=== PATIENT | female | born 1975 | race Caucasian/White ===

== ENCOUNTER 2019-12-24 14:49 | Emergency (ER) | payer MEDICAID, OTHER ==
[~2019-12-24] VITALS: Ht 149.9 cm; Wt 72.6 kg
[2019-12-24 17:50] VITALS: BP 180/83
== END 2019-12-24 18:11 | disposition home or self-care (01) ==
LOC: ER 14:49
DX: N61.1 Abscess of the breast and nipple (principal)

== ENCOUNTER 2020-04-13 21:29 | Emergency (ER) | payer MEDICAID ==
[~2020-04-13] VITALS: Ht 152.4 cm; Wt 77.1 kg
[2020-04-14 00:56] VITALS: BP 130/68
[2020-04-14] MEDS ORDERED: LIDOCAINE 1% HCL (LOCAL ANESTH.) INJ 20ML MDV IJ ONE (01:00)
== END 2020-04-14 01:45 | disposition home or self-care (01) ==
LOC: ER 21:31
DX: N61.1 Abscess of the breast and nipple (principal); N61.0 Mastitis without abscess
CPT/HCPCS: 19020; 99284; J2001; 10060

== ENCOUNTER 2020-04-15 16:11 | Emergency (ER) | payer MEDICAID ==
[~2020-04-15] VITALS: Ht 149.9 cm; Wt 77.1 kg
[2020-04-15 17:58] VITALS: BP 166/90
== END 2020-04-15 18:25 | disposition home or self-care (01) ==
LOC: ER 16:11
DX: N61.1 Abscess of the breast and nipple (principal); N61.0 Mastitis without abscess; F17.210 Nicotine dependence, cigarettes, uncomplicated; I10 Essential (primary) hypertension

== ENCOUNTER 2020-04-18 17:22 | Emergency (ER) | payer MEDICAID ==
[~2020-04-18] VITALS: Ht 152.4 cm; Wt 77.1 kg
[2020-04-18 17:25] VITALS: BP 179/99
== END 2020-04-18 20:42 | disposition home or self-care (01) ==
LOC: ER 17:22
DX: N61.0 Mastitis without abscess (principal); I10 Essential (primary) hypertension; F17.210 Nicotine dependence, cigarettes, uncomplicated; Z87.442 Personal history of urinary calculi; Z48.01 Encounter for change or removal of surgical wound dressing

== ENCOUNTER 2020-05-24 18:17 | Emergency (ER) | payer MEDICAID ==
[~2020-05-24] VITALS: Ht 149.9 cm; Wt 77.1 kg
[2020-05-24 18:18] VITALS: BP 183/90
== END 2020-05-24 23:13 | disposition left against medical advice (07) ==
LOC: ER 18:19
DX: R22.0 Localized swelling, mass and lump, head (principal); Z53.21 Procedure and treatment not carried out due to patient leaving prior to being seen by health care provider

== ENCOUNTER 2021-05-05 05:07 | Inpatient (IN) | payer MEDICAID ==
[~2021-05-05] VITALS: Ht 149.9 cm; Wt 84.0 kg
[2021-05-05] MEDS ORDERED: KETOROLAC TROMETH 60MG/2ML VIAL IM ONE (05:30)
[2021-05-05 06:14] LABS: Urine Amorphous Crystal FEW /hpf (None Seen); Urine Bacteria FEW /hpf (None Seen); Urine Blood TRACE /uL (Negative); Urine Hyaline Cast FEW /lpf (0 - 2); Urine Mucus FEW (None Seen); Urine Specific Gravity 1.014 (1.001-1.035); Urine WBC 5 /hpf (0 - 5)
[2021-05-05] MEDS ORDERED: ONDANSETRON HCL 4 MG/2 ML VIAL IV ONE (06:30)
[2021-05-05] MEDS ORDERED: MORPHINE SULFATE 4 MG/ML SYR/VIAL IV ONE (06:30)
[2021-05-05] MEDS ORDERED: cefTRIAXone 1GM/50ML D5W 50 ML IV ONE ×2 (06:30→16:15)
[2021-05-05] MEDS ORDERED: SODIUM CHLORIDE 0.9% 1,000 ML IV ONE ×2 (06:30)
[2021-05-05 07:22] LABS: Basophils # (auto) 0.1 10 ^3/uL (0-0.2); Basophils % (auto) 0.3 % (0.0-2.0); Eosinophils # (auto) 0.4 10 ^3/uL (0-0.8); Eosinophils % (auto) 2.4 % (0.0-7.0); Hematocrit 40.3 % (36.0-46.0); Hemoglobin 13.4 g/dL (12.2-16.2); Lymphocytes # (auto) 1.8 10 ^3/uL (0.4-5.4); Lymphocytes % (auto) 10.3 % (10.0-50.0); Mean Corpuscular Hemoglobin 27.9 pg (28.0-32.0); Mean Corpuscular Hgb Conc. 33.2 g/dL (32.0-36.0); Mean Corpuscular Volume 84.1 fL (80.0-100.0); Monocytes # (auto) 1.2 10 ^3/uL (0-1.3); Monocytes % (auto) 6.8 % (0.0-12.0); Neutrophils # (auto) 14.3 10 ^3/uL (1.6-8.6); Neutrophils % (auto) 80.2 % (37.0-80.0); Nucleated Red Blood Cells % 0.1 %; Red Blood Cells 4.79 10^6/uL (4.0-5.20); Red Cell Distribution Width 15.9 % (11.8-14.3); White Blood Cell 17.9 10^3/uL (4.4-10.8)
[2021-05-05 07:46] LABS: Albumin 3.2 g/dL (3.4-5.0); BUN/Creatinine Ratio 16.4; Calcium 8.3 mg/dL (8.5-10.1); Potassium 3.7 mmol/L (3.5-5.1)
[2021-05-05 07:48] LABS: Bilirubin, Total 0.2 mg/dL (0.2-1.0); Total Protein 6.8 g/dL (6.4-8.2)
[2021-05-05] MEDS ORDERED: LABETALOL HCL 5 MG/ML 4ML SYRINGE IV ONE (08:15)
[2021-05-05] MEDS ORDERED: PROMETHAZINE HCL 25 MG/ML 1ML IV ONE (09:15)
[2021-05-05] MEDS ORDERED: LABETALOL HCL 5 MG/ML 4ML SYRINGE IV PRN (10:45)
[2021-05-05] MEDS ORDERED: NITROGLYCERIN 0.4 MG SL TAB SL PRN (10:45)
[2021-05-05] MEDS ORDERED: MORPHINE SULFATE INJECTION 2 MG/ML SYRG IV PRN (10:45)
[2021-05-05 13:20] VITALS: BP 119/61
[2021-05-05] MEDS ORDERED: LACTULOSE 20Gm/30ML SOLN PO PRN (16:00)
[2021-05-05] MEDS ORDERED: FAMOTIDINE (10MG/ML) 2ML VL IV ONE (16:00)
[2021-05-05] MEDS ORDERED: PROMETHAZINE-DM 5 ML ORAL SYRUP PO PRN (16:00)
[2021-05-05] MEDS ORDERED: hydrALAZINE HCL 20 MG/ML VL IV PRN (16:00)
[2021-05-05] MEDS ORDERED: IPRATROPIUM BROM 0.5 MG/2.5ML INH SOL NEB ONE (16:00)
[2021-05-05] MEDS ORDERED: DOCUSATE SOD 100 MG CAP PO PRN (16:00)
[2021-05-05] MEDS ORDERED: LORazepam 0.5 MG TAB PO PRN (16:00)
[2021-05-05] MEDS: SODIUM CHLORIDE 0.9% 1,000 ML IV SCH (16:00)
[2021-05-05] MEDS ORDERED: MULTIPLE VITAMINS W/ MINERALS TAB PO ONE (16:00)
[2021-05-05] MEDS ORDERED: ONDANSETRON HCL 4 MG/2 ML VIAL IV PRN (16:00)
[2021-05-05] MEDS ORDERED: CLINDAMYCIN 600MG IV 50 ML IV ONE (16:15)
[2021-05-05] MEDS ORDERED: IPRATROPIUM BROM 0.5 MG/2.5ML INH SOL NEB SCH (18:00)
[2021-05-05 18:16] LABS: Partial Thromboplastin Time 28.7 sec (23.6-33.0)
[2021-05-05 18:17] LABS: Magnesium 2.1 mg/dL (1.6-2.6)
[2021-05-05 18:19] LABS: Phosphorus 4.3 mg/dL (2.5-4.90)
[2021-05-05 20:48] VITALS: BP 119/61
[2021-05-05] MEDS: CLINDAMYCIN 600MG IV 50 ML IV SCH (21:20)
[2021-05-05 22:00] VITALS: BP 141/73
[2021-05-05] MEDS ORDERED: ATORVASTATIN 20 MG TAB PO SCH (22:00)
[2021-05-05] MEDS ORDERED: IPRATROPIUM BROM 0.5 MG/2.5ML INH SOL NEB PRN (22:00)
[2021-05-06 05:00] VITALS: BP 144/77
[2021-05-06] MEDS: CLINDAMYCIN 600MG IV 50 ML IV SCH (06:59)
[2021-05-06 07:03] LABS: Basophils # (auto) 0 10 ^3/uL (0-0.2); Basophils % (auto) 0.4 % (0.0-2.0); Eosinophils # (auto) 0.5 10 ^3/uL (0-0.8); Eosinophils % (auto) 4.5 % (0.0-7.0); Hematocrit 39.3 % (36.0-46.0); Hemoglobin 13.1 g/dL (12.2-16.2); Lymphocytes # (auto) 1.5 10 ^3/uL (0.4-5.4); Lymphocytes % (auto) 12.6 % (10.0-50.0); Mean Corpuscular Hemoglobin 28.1 pg (28.0-32.0); Mean Corpuscular Hgb Conc. 33.4 g/dL (32.0-36.0); Mean Corpuscular Volume 84.1 fL (80.0-100.0); Monocytes # (auto) 0.6 10 ^3/uL (0-1.3); Monocytes % (auto) 4.9 % (0.0-12.0); Neutrophils # (auto) 9.3 10 ^3/uL (1.6-8.6); Neutrophils % (auto) 77.6 % (37.0-80.0); Red Blood Cells 4.67 10^6/uL (4.0-5.20); Red Cell Distribution Width 16.2 % (11.8-14.3)
[2021-05-06 07:16] LABS: INR 0.99 (0.9-1.15); Partial Thromboplastin Time 27.3 sec (23.6-33.0)
[2021-05-06 09:00] VITALS: BP 155/80
[2021-05-06] MEDS ORDERED: CHOLECALCIFEROL (VITD3) 2,000 UNIT CAP/TAB PO SCH (10:00)
[2021-05-06] MEDS ORDERED: MULTIPLE VITAMINS W/ MINERALS TAB PO SCH (10:00)
[2021-05-06] MEDS ORDERED: ASPirin 81 mg TAB PO SCH (10:00)
[2021-05-06] MEDS: FAMOTIDINE (10MG/ML) 2ML VL IV SCH (10:31)
[2021-05-06] MEDS: ENOXAPARIN SOD 40 MG/0.4 ML SYRINGE SC SCH (10:31)
[2021-05-06] MEDS: SODIUM CHLORIDE 0.9% 1,000 ML IV SCH (10:33)
[2021-05-06] MEDS: cefTRIAXone 1GM/50ML D5W 50 ML IV SCH (10:33)
[2021-05-06 12:55] LABS: Alcohol, Urine < 3.0 mg/dL (0-10); Amphetamine Screen, Urine POSITIVE (NEGATIVE); Barbiturate Scree,Urine NEGATIVE (NEGATIVE); Benzodiazephine Screen, Urine NEGATIVE (NEGATIVE); Cocaine Screen, Urine NEGATIVE (NEGATIVE); Opiate Scree,Urine NEGATIVE (NEGATIVE); Phencyclidine Screen, Urine NEGATIVE (NEGATIVE)
[2021-05-06 13:00] VITALS: BP 175/85
[2021-05-06 13:01] LABS: Cannabinoid Screen, Urine NEGATIVE (NEGATIVE)
[2021-05-06 17:00] VITALS: BP 149/81
[2021-05-06] MEDS ORDERED: MANNITOL FTV 25% 12.5 GM/50 ML 50 ML IV ONE ×2 (17:15→20:15)
[2021-05-06 22:00] VITALS: BP 144/65
[2021-05-07] MEDS: SODIUM CHLORIDE 0.9% 1,000 ML IV SCH (01:41)
[2021-05-07 05:00] VITALS: BP 139/90
[2021-05-07 08:30] VITALS: BP 158/84
[2021-05-07 09:00] VITALS: BP 135/89
[2021-05-07] MEDS: cefTRIAXone 1GM/50ML D5W 50 ML IV SCH (09:18)
[2021-05-07] MEDS: FAMOTIDINE (10MG/ML) 2ML VL IV SCH (09:18)
[2021-05-07] MEDS: ENOXAPARIN SOD 40 MG/0.4 ML SYRINGE SC SCH (09:19)
[2021-05-07] MEDS ORDERED: ONDA-144 PO (10:05)
[2021-05-07] MEDS ORDERED: CIPR-173 PO (10:05)
[2021-05-07] MEDS ORDERED: LISI-285 PO (10:28)
[2021-05-07] MEDS ORDERED: TAM04C PO (10:28)
[2021-05-07] MEDS ORDERED: TRAM50TA2 PO (10:28)
[2021-05-07 10:40] LABS: Albumin 3.1 g/dL (3.4-5.0); Calcium 8.2 mg/dL (8.5-10.1); Magnesium 2.6 mg/dL (1.6-2.6); Potassium 4.2 mmol/L (3.5-5.1)
[2021-05-07 10:46] LABS: BUN/Creatinine Ratio 18.5; Bilirubin, Total 0.3 mg/dL (0.2-1.0); CRP High Sensitivity 0.94 mg/dL (< 0.3); Phosphorus 3.4 mg/dL (2.5-4.90); Total Protein 6.7 g/dL (6.4-8.2)
[2021-05-07 12:28] VITALS: BP 144/70
[2021-05-07 12:51] VITALS: BP 158/84
== END 2021-05-07 13:21 | disposition home or self-care (01) | DRG 463 ==
LOC: ER 05:07 → TELE 10:45 → TELE-EAST 12:31 → TELE-CENTR 05-06 05:34
PROVIDERS: ADMIT Hospitalist; ATTEND Internal Medicine
DX: N13.6 Pyonephrosis (principal); N17.9 Acute kidney failure, unspecified; N20.2 Calculus of kidney with calculus of ureter; I16.0 Hypertensive urgency; I13.10 Hypertensive heart and chronic kidney disease without heart failure, with stage 1 through stage 4 chronic kidney disease, or unspecified chronic kidney disease; E66.01 Morbid (severe) obesity due to excess calories; N73.9 Female pelvic inflammatory disease, unspecified; N18.2 Chronic kidney disease, stage 2 (mild); K21.9 Gastro-esophageal reflux disease without esophagitis; Z20.822 Contact with and (suspected) exposure to COVID-19; E78.5 Hyperlipidemia, unspecified; F10.10 Alcohol abuse, uncomplicated; F17.210 Nicotine dependence, cigarettes, uncomplicated; F12.90 Cannabis use, unspecified, uncomplicated; K29.70 Gastritis, unspecified, without bleeding; N80.9 Endometriosis, unspecified; Z91.14 Patient's other noncompliance with medication regimen; Z68.37 Body mass index [BMI] 37.0-37.9, adult
CPT/HCPCS: 36415; 74176; 76775; 76830; 76856; 80053; 80061; 80307; 81001; 82728; 83036; 83690; 83735; 83880; 84100; 84443; 84484; 85025; 85379; 85610; 85652; 85730; 86141; 87040; 87086; 87426; 93005; 96365; 96375; G0378; J0696; J1885; J2405; J3490

== ENCOUNTER 2021-08-01 20:31 | Emergency (ER) | payer MEDICAID ==
[~2021-08-01] VITALS: Ht 149.9 cm; Wt 90.7 kg
[2021-08-01 20:31] VITALS: BP 180/93
[~2021-08-01 20:31] MED LIST: CIPR-173 PO; LISI-285 PO; ONDA-144 PO; TAM04C PO; TRAM50TA2 PO
[2021-08-02] MEDS ORDERED: KETOROLAC TROMETH 60MG/2ML VIAL IM ONE
[2021-08-02] MEDS ORDERED: HYDROcodone-ACET 5/325MG TAB PO PRN (03:00)
[2021-08-02] MEDS ORDERED: ONDANSETRON HCL 4 MG/2 ML VIAL IV PRN (03:00)
[2021-08-02] MEDS ORDERED: ACETAMINOPHEN 325 MG TAB PO PRN (03:00)
[2021-08-02] MEDS ORDERED: DOCUSATE SOD 100 MG CAP PO PRN (03:00)
[2021-08-02] MEDS ORDERED: MORPHINE SULFATE INJ 2 MG/ml SYRG IV PRN (03:00)
[2021-08-02] MEDS ORDERED: hydrALAZINE HCL 20 MG/ML VL IV PRN (03:00)
[2021-08-02 04:12] LABS: Urine Bacteria FEW /hpf (None Seen); Urine Blood Negative /uL (Negative); Urine Hyaline Cast FEW /lpf (0 - 2); Urine Mucus FEW (None Seen); Urine Specific Gravity 1.021 (1.001-1.035); Urine WBC 53 /hpf (0 - 5)
[2021-08-02] MEDS ORDERED: SODIUM CHLOR 0.9% PF (SALINE LOCK) 10ML VIAL/SYR IV SCH (06:00)
[2021-08-02] MEDS ORDERED: ENOXAPARIN SOD 40 MG/0.4 ML SYRINGE SC SCH (10:00)
[2021-08-02] MEDS ORDERED: TAMSULOSIN HYDROCHLORIDE 0.4 MG CAP PO SCH (18:00)
== END 2021-08-02 03:31 | disposition left against medical advice (07) ==
LOC: ER 20:31
DX: N13.9 Obstructive and reflux uropathy, unspecified (principal); N20.0 Calculus of kidney; N13.30 Unspecified hydronephrosis; F17.210 Nicotine dependence, cigarettes, uncomplicated; F12.10 Cannabis abuse, uncomplicated; I10 Essential (primary) hypertension
CPT/HCPCS: 74176; 81001

== ENCOUNTER 2021-08-05 11:39 | Inpatient (IN) | payer MEDICAID ==
[~2021-08-05] VITALS: Ht 151.1 cm; Wt 79.5 kg
[2021-08-05 12:19] LABS: Basophils # (auto) 0.1 10 ^3/uL (0-0.2); Eosinophils # (auto) 0.7 10 ^3/uL (0-0.8); Hemoglobin 13.1 g/dL (12.2-16.2); Mean Corpuscular Volume 85.4 fL (80.0-100.0); Monocytes # (auto) 0.9 10 ^3/uL (0-1.3)
[2021-08-05 12:21] LABS: Basophils % (auto) 0.9 % (0.0-2.0); Eosinophils % (auto) 5.7 % (0.0-7.0); Hematocrit 39.1 % (36.0-46.0); Lymphocytes # (auto) 2.8 10 ^3/uL (0.4-5.4); Lymphocytes % (auto) 23.8 % (10.0-50.0); Mean Corpuscular Hemoglobin 28.6 pg (28.0-32.0); Mean Corpuscular Hgb Conc. 33.5 g/dL (32.0-36.0); Neutrophils # (auto) 7.3 10 ^3/uL (1.6-8.6); Neutrophils % (auto) 61.6 % (37.0-80.0); Nucleated Red Blood Cells % 0.2 %; Red Blood Cells 4.58 10^6/uL (4.0-5.20); White Blood Cell 11.8 10^3/uL (4.4-10.8)
[2021-08-05 12:37] LABS: Albumin 3.5 g/dL (3.4-5.0); Calcium 9.3 mg/dL (8.5-10.1); Potassium 3.7 mmol/L (3.5-5.1)
[2021-08-05 12:40] LABS: BUN/Creatinine Ratio 15.8; Bilirubin, Total 0.3 mg/dL (0.2-1.0); Total Protein 8.1 g/dL (6.4-8.2)
[2021-08-05] MEDS ORDERED: SODIUM CHLORIDE 0.9% 1,000 ML IVB ONE (14:15)
[2021-08-05] MEDS ORDERED: KETOROLAC TROMETH 30 MG/ML 1ML VIAL IV ONE (14:15)
[2021-08-05 15:56] LABS: Urine Bacteria FEW /hpf (None Seen); Urine Blood Negative /uL (Negative); Urine Specific Gravity 1.022 (1.001-1.035); Urine WBC 26 /hpf (0 - 5)
[2021-08-06] VITALS (7 sets, daily range): BP systolic 135–178; BP diastolic 76–89
[2021-08-06] MEDS ORDERED: TEMAZEPAM 15 MG CAP PO PRN (00:45)
[2021-08-06] MEDS ORDERED: ACETAMINOPHEN 325 MG TAB PO PRN (00:45)
[2021-08-06] MEDS ORDERED: MORPHINE SULFATE INJ 2 MG/ml SYRG IV PRN (00:45)
[2021-08-06] MEDS ORDERED: ONDANSETRON HCL 4 MG/2 ML VIAL IV PRN (00:45)
[2021-08-06] MEDS ORDERED: cefTRIAXone 1GM/50ML D5W 50 ML IV ONE (00:45)
[2021-08-06] MEDS ORDERED: hydrALAZINE HCL 20 MG/ML VL IV ONE (02:30)
[2021-08-06] MEDS: PANTOPRAZOLE 40 MG TAB PO SCH (09:38)
[2021-08-06] MEDS ORDERED: MANNITOL FTV 25% 12.5 GM/50 ML 50 ML IV ONE (10:00)
[2021-08-06] MEDS ORDERED: TAMSULOSIN HYDROCHLORIDE 0.4 MG CAP PO ONE (12:15)
[2021-08-06 13:11] LABS: Alcohol, Urine < 3.0 mg/dL (0-10); Barbiturate Scree,Urine NEGATIVE (NEGATIVE); Benzodiazephine Screen, Urine NEGATIVE (NEGATIVE); Cannabinoid Screen, Urine NEGATIVE (NEGATIVE); Cocaine Screen, Urine NEGATIVE (NEGATIVE); Opiate Scree,Urine NEGATIVE (NEGATIVE); Phencyclidine Screen, Urine NEGATIVE (NEGATIVE)
[2021-08-06 13:20] LABS: Amphetamine Screen, Urine POSITIVE (NEGATIVE)
[2021-08-06] MEDS ORDERED: KETOROLAC TROMETH 30 MG/ML 1ML VIAL IV PRN (13:30)
[2021-08-06 15:22] LABS: INR 0.97 (0.9-1.15); Partial Thromboplastin Time 27.7 sec (23.6-33.0)
[2021-08-06] MEDS: HYDROcodone-ACET 5/325MG TAB PO PRN (15:39)
[2021-08-06] MEDS: TAMSULOSIN HYDROCHLORIDE 0.4 MG CAP PO SCH (17:02)
[2021-08-06] MEDS: SODIUM CHLORIDE 0.9% 1,000 ML IV SCH (17:03)
[2021-08-06] MEDS: cefTRIAXone 1GM/50ML D5W 50 ML IV SCH (21:13)
[2021-08-07] MEDS: SODIUM CHLORIDE 0.9% 1,000 ML IV SCH ×5 (01:50→22:00)
[2021-08-07 05:00] VITALS: BP 149/82
[2021-08-07] MEDS: HYDROcodone-ACET 5/325MG TAB PO PRN ×3 (06:30→18:27)
[2021-08-07 07:06] LABS: Basophils # (auto) 0 10 ^3/uL (0-0.2); Basophils % (auto) 0.2 % (0.0-2.0); Eosinophils # (auto) 0.5 10 ^3/uL (0-0.8); Hematocrit 36.6 % (36.0-46.0); Lymphocytes % (auto) 18.4 % (10.0-50.0); Mean Corpuscular Hemoglobin 28.2 pg (28.0-32.0); Mean Corpuscular Hgb Conc. 32.7 g/dL (32.0-36.0); Mean Corpuscular Volume 86.1 fL (80.0-100.0); Monocytes # (auto) 0.8 10 ^3/uL (0-1.3); Neutrophils # (auto) 7.6 10 ^3/uL (1.6-8.6); Neutrophils % (auto) 69.4 % (37.0-80.0); Red Blood Cells 4.25 10^6/uL (4.0-5.20); Red Cell Distribution Width 16.1 % (11.8-14.3); White Blood Cell 10.9 10^3/uL (4.4-10.8)
[2021-08-07 07:24] LABS: Albumin 2.7 g/dL (3.4-5.0); Calcium 8.1 mg/dL (8.5-10.1); Potassium 4.4 mmol/L (3.5-5.1)
[2021-08-07 07:27] LABS: BUN/Creatinine Ratio 16.9; Bilirubin, Total 0.2 mg/dL (0.2-1.0); Total Protein 6.7 g/dL (6.4-8.2)
[2021-08-07 09:00] VITALS: BP 151/73
[2021-08-07] MEDS: PANTOPRAZOLE 40 MG TAB PO SCH (09:59)
[2021-08-07] MEDS ORDERED: fentaNYL CITRATE 100 MCG/2 ML VL ONE (12:45)
[2021-08-07] MEDS ORDERED: MIDAZOLAM HCL 2MG/2ML 2ml VIAL (1mg/ml) ONE (12:45)
[2021-08-07] MEDS ORDERED: IODIXANOL 320MG/ML 100ML BTL IV ONE (12:46)
[2021-08-07] MEDS ORDERED: LIDOCAINE 2%HCL (LOCAL ANESTH.) INJ 10ml MDV ONE (12:46)
[2021-08-07 13:00] VITALS: BP 154/76
[2021-08-07] MEDS ORDERED: hydrALAZINE HCL 20 MG/ML VL IV PRN (14:30)
[2021-08-07 17:00] VITALS: BP 155/84
[2021-08-07] MEDS: TAMSULOSIN HYDROCHLORIDE 0.4 MG CAP PO SCH (18:26)
[2021-08-07] MEDS: cefTRIAXone 1GM/50ML D5W 50 ML IV SCH (20:43)
[2021-08-07 22:00] VITALS: BP 138/62
[2021-08-08 05:00] VITALS: BP 125/66
[2021-08-08] MEDS: SODIUM CHLORIDE 0.9% 1,000 ML IV SCH (05:30)
[2021-08-08] MEDS ORDERED: CIPR-173 PO (08:39)
[2021-08-08] MEDS ORDERED: TRAM50TA2 PO (08:39)
[2021-08-08 09:09] VITALS: BP 115/76
[2021-08-08 10:53] VITALS: BP 155/76
[2021-08-08] MEDS: PANTOPRAZOLE 40 MG TAB PO SCH (11:21)
== END 2021-08-08 12:11 | disposition home or self-care (01) | DRG 463 ==
LOC: ER 11:39 → OVERFLOW 08-06 00:42 → CENTRAL 08-06 04:03
PROVIDERS: ADMIT Nurse Practitioner; ATTEND Family Medicine
PROC: 0T9030Z Drainage of Right Kidney with Drainage Device, Percutaneous Approach (ICD-10-PCS; principal; 2021-08-07)
PROC: BT41ZZZ Ultrasonography of Right Kidney (ICD-10-PCS; 2021-08-07)
PROC: BT111ZZ Fluoroscopy of Right Kidney using Low Osmolar Contrast (ICD-10-PCS; 2021-08-07)
DX: N13.6 Pyonephrosis (principal); N17.9 Acute kidney failure, unspecified; E86.0 Dehydration; Z20.822 Contact with and (suspected) exposure to COVID-19; N20.0 Calculus of kidney; F17.210 Nicotine dependence, cigarettes, uncomplicated; Z79.899 Other long term (current) drug therapy; Z82.49 Family history of ischemic heart disease and other diseases of the circulatory system; Z87.442 Personal history of urinary calculi; Z90.49 Acquired absence of other specified parts of digestive tract; Z93.6 Other artificial openings of urinary tract status; Z71.6 Tobacco abuse counseling
CPT/HCPCS: 36415; 50430; 74176; 74425; 76775; 76942; 80053; 80307; 81001; 84702; 85025; 85610; 85730; 87081; 87086; 96365; 96375; 99152; G0378; J0696; J1885; J2001; J2250; Q9967

== ENCOUNTER 2021-08-11 00:56 | Emergency (ER) | payer MEDICAID ==
[~2021-08-11] VITALS: Ht 152.4 cm; Wt 81.6 kg
[2021-08-11 05:46] VITALS: BP 155/95
== END 2021-08-11 05:47 | disposition home or self-care (01) ==
LOC: ER 00:56
DX: T83.092A Other mechanical complication of nephrostomy catheter, initial encounter (principal); F17.210 Nicotine dependence, cigarettes, uncomplicated; F12.10 Cannabis abuse, uncomplicated; F15.10 Other stimulant abuse, uncomplicated; I10 Essential (primary) hypertension; Z87.442 Personal history of urinary calculi
CPT/HCPCS: 76775

== ENCOUNTER 2021-09-14 04:10 | Emergency (ER) | payer MEDICAID ==
[~2021-09-14] VITALS: Ht 152.4 cm; Wt 75.7 kg
[2021-09-14 07:45] LABS: Basophils # (auto) 0.1 10 ^3/uL (0-0.2); Basophils % (auto) 0.5 % (0.0-2.0); Eosinophils # (auto) 0.7 10 ^3/uL (0-0.8); Eosinophils % (auto) 5.9 % (0.0-7.0); Hematocrit 38.5 % (36.0-46.0); Hemoglobin 12.3 g/dL (12.2-16.2); Lymphocytes # (auto) 2.6 10 ^3/uL (0.4-5.4); Lymphocytes % (auto) 22.2 % (10.0-50.0); Mean Corpuscular Hemoglobin 27.4 pg (28.0-32.0); Mean Corpuscular Volume 85.7 fL (80.0-100.0); Monocytes # (auto) 0.8 10 ^3/uL (0-1.3); Monocytes % (auto) 6.6 % (0.0-12.0); Neutrophils # (auto) 7.5 10 ^3/uL (1.6-8.6); Neutrophils % (auto) 64.8 % (37.0-80.0); Red Blood Cells 4.49 10^6/uL (4.0-5.20); Red Cell Distribution Width 15.7 % (11.8-14.3); White Blood Cell 11.6 10^3/uL (4.4-10.8)
[2021-09-14 07:58] LABS: Albumin 3.3 g/dL (3.4-5.0); Calcium 8.6 mg/dL (8.5-10.1); Potassium 3.5 mmol/L (3.5-5.1)
[2021-09-14 08:02] LABS: BUN/Creatinine Ratio 18.6; Bilirubin, Total 0.3 mg/dL (0.2-1.0); Total Protein 7.6 g/dL (6.4-8.2)
[2021-09-14] MEDS ORDERED: CEPH-509 PO (08:51)
[2021-09-14 09:58] VITALS: BP 156/94
== END 2021-09-14 10:04 | disposition home or self-care (01) ==
LOC: ER 04:10 → EDUNIT# 04:10 → EDBD 04:10 → ER 10:04
DX: N20.0 Calculus of kidney (principal); N39.0 Urinary tract infection, site not specified; I10 Essential (primary) hypertension; F17.210 Nicotine dependence, cigarettes, uncomplicated; F12.10 Cannabis abuse, uncomplicated; Z90.49 Acquired absence of other specified parts of digestive tract; Z98.51 Tubal ligation status
CPT/HCPCS: 36415; 74176; 80053; 84484; 85025; 93005

== ENCOUNTER 2021-09-18 13:23 | Emergency (ER) | payer MEDICAID ==
[~2021-09-18 13:23] MED LIST changes: +CEPH-509 PO
[2021-09-18 14:02] VITALS: BP 179/63
[2021-09-18 15:21] LABS: Basophils # (auto) 0 10 ^3/uL (0-0.2); Basophils % (auto) 0.2 % (0.0-2.0); Eosinophils # (auto) 0.6 10 ^3/uL (0-0.8); Eosinophils % (auto) 4.2 % (0.0-7.0); Hemoglobin 12.1 g/dL (12.2-16.2); Lymphocytes # (auto) 2.1 10 ^3/uL (0.4-5.4); Lymphocytes % (auto) 14.9 % (10.0-50.0); Mean Corpuscular Hemoglobin 26.8 pg (28.0-32.0); Mean Corpuscular Hgb Conc. 31.9 g/dL (32.0-36.0); Mean Corpuscular Volume 84.1 fL (80.0-100.0); Monocytes # (auto) 1.1 10 ^3/uL (0-1.3); Monocytes % (auto) 7.8 % (0.0-12.0); Neutrophils # (auto) 10.3 10 ^3/uL (1.6-8.6); Neutrophils % (auto) 72.9 % (37.0-80.0); Nucleated Red Blood Cells % 0.1 %; Red Blood Cells 4.52 10^6/uL (4.0-5.20); Red Cell Distribution Width 15.4 % (11.8-14.3); White Blood Cell 14.1 10^3/uL (4.4-10.8)
[2021-09-18] MEDS ORDERED: cefTRIAXone W LIDOCAINE 1 GM IM IM ONE (15:30)
[2021-09-18 15:32] LABS: Albumin 3.3 g/dL (3.4-5.0); BUN/Creatinine Ratio 15.3; Calcium 8.9 mg/dL (8.5-10.1); Potassium 3.5 mmol/L (3.5-5.1)
[2021-09-18 15:35] LABS: Bilirubin, Total 0.2 mg/dL (0.2-1.0); Total Protein 7.6 g/dL (6.4-8.2)
[2021-09-18 17:12] LABS: Urine Bacteria MANY /hpf (None Seen); Urine Blood 2+ /uL (Negative); Urine Hyaline Cast FEW /lpf (0 - 2); Urine Mucus FEW (None Seen); Urine Specific Gravity 1.023 (1.001-1.035); Urine WBC 131 /hpf (0 - 5)
== END 2021-09-18 16:26 | disposition home or self-care (01) ==
LOC: ER 13:23
DX: I16.0 Hypertensive urgency (principal); I10 Essential (primary) hypertension; T83.092A Other mechanical complication of nephrostomy catheter, initial encounter
CPT/HCPCS: 36415; 80053; 81001; 85025; 96372; 99283; J0696